=== PATIENT | female | born 1960 | race Caucasian/White ===

== ENCOUNTER 2018-09-21 07:48 | Day surgery (SDC) | payer MEDICARE, OTHER ==
[2018-09-21] MEDS ORDERED: CLINDAMYCIN PHOSPHATE 900 MG/6 ML VIAL ONE (08:48)
[2018-09-21] MEDS ORDERED: LACTATED RINGERS 1,000 ML IV.SOLN IV ONE ×2 (08:48)
[2018-09-21] MEDS ORDERED: LIDOCAINE HCL/PF 2% 100 MG/5 ML VIAL IJ ONE (08:48)
[2018-09-21] MEDS ORDERED: SEVOFLURANE 250 ML LIQUID IH ONE (08:48)
[2018-09-21] MEDS ORDERED: DEXAMETHASONE SOD PHOS 4 MG/ML VIAL ONE (08:48)
[2018-09-21] MEDS ORDERED: FENTANYL 250MCG/5ML VIAL ONE (08:48)
[2018-09-21] MEDS ORDERED: PHENYLEPHRINE HCL 10 MG/1 ML ONE (08:48)
[2018-09-21] MEDS ORDERED: ONDANSETRON HCL/PF 4 MG/ 2ML VIAL ONE (08:48)
[2018-09-21] MEDS ORDERED: fentaNYL CITRATE/PF 100 MCG/ 2ML AMP ONE ×2 (08:48→13:41)
[2018-09-21] MEDS ORDERED: PROPOFOL 200 MG/20 ML VIAL IV ONE (08:48)
[2018-09-21] MEDS ORDERED: ROCURONIUM BROMIDE 10 MG/ML 5ML VIAL ONE (08:48)
[2018-09-21] MEDS ORDERED: SUGAMMADEX 200 mg/2mL 200 MG/2 ML VIAL IV ONE (08:48)
[2018-09-21] MEDS ORDERED: MIDAZOLAM HCL 2 MG/2 ML VIAL ONE (08:48)
[2018-09-21] MEDS ORDERED: LACTATED RINGERS 1,000 ML IV ONE (09:09)
[2018-09-21] MEDS ORDERED: FAMOTIDINE/PF 20 MG/2 ML VIAL ONE (09:10)
[2018-09-21] MEDS ORDERED: LEVALBUTEROL HCL 1.25 MG/3 ML AMPUL.NEB NEB ONE (09:10)
[2018-09-21] MEDS ORDERED: HYDROmorphone HCL/PF 1 MG/ML DISP.SYRIN ONE (13:42)
[2018-09-21] MEDS ORDERED: oxyCODONE/ACETAMINOPHEN 5/325 TABLET PO PRN ×2 (16:20→17:00)
[2018-09-21] MEDS ORDERED: oxyCODONE HCL 5 MG TABLET PO PRN (16:24)
== END 2018-09-21 07:50 ==
LOC: OPSURG 07:48
PROVIDERS: ATTEND Orthopaedic Surgery
DX: M48.062 Spinal stenosis, lumbar region with neurogenic claudication (principal); M51.26 Other intervertebral disc displacement, lumbar region; Z79.01 Long term (current) use of anticoagulants
CPT/HCPCS: 36415; 63030; 85610; 85730; J1100; J1170; J2001; J2250; J2370; J2405; J2704; J3010; J7614; S0028; J7120

== ENCOUNTER 2018-09-24 17:30 | Observation (INO) | payer MEDICARE, OTHER ==
[2018-09-24 19:00] VITALS: BMI 26.2
--- NOTE | 2018-09-24 20:38 | History and Physical Report ---
History of Present Illnes - History of Present Illness Reason for Visit: Intractible pain after surgery History of Present Illness: This is a 58 year old female who had a surgery for a herniated lumbar disk done at our facility on Friday September 21, 2018. She did well after surgery, however she began to have worsening pain on Monday, and presented to the ER at [facility] in [place] Monday, as well as today. She presented to our facility for admission after having an MRI done at [facility]. MRI showed a fluid collection at the surgical site, and this causes some relative spinal stenosis and displacement of the thecal sac anteriorly and to the right. I discussed this with Dr. Rose and he says that this is a normal postoperative finding. He recommended that she be started on a medrol dose pack. He feels like this will help decrease inflammation. She is currently neurovascularly intact in both lower extremities. Her pulses are easily palpable at the DP/PT and she has no objective decrement in strength in either leg. No sensory deficits are noted, however her mental status due to previous stroke make it difficult for her to follow commands for formal neurologic testing. Her pain is difficult to rate but she is repeatedly trying to get comfortable in the bed. Medical records from [facility] are reviewed. It does not include a list of current medications, and her pharmacy ([facility] in [place]) is closed and we cannot locate her records from her visit here on Monday. 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: CVA (age 26) - Past Surgical History Past Surgical History: (x4), Other (surgery for median nerve entrapment) - Past Social History Smoke: <1 pack per day Alcohol: Rare Drugs: None Lives: With Family (With who is alcoholic) Domestic Violence: Negative (But according to records from [facility] she feels "unsafe at home".) - Health Maintenance Health Maintenance: Cholesterol Influenza Vaccine: Current for this Influenza Season Pneumonia Vaccine: No Resuscitation Status: Resusciation Status Resuscitation Status Full Code - Unable to Obtain History Unable to Obtain: Yes Review of Systems - Review of Systems Constitutional: negative: Fever Eyes: negative: pain ENT: negative: Ear Pain Respiratory: negative: Cough Cardiovascular: negative: Chest Pain Gastrointestinal: negative: Nausea, Vomiting Genitourinary: negative: Dysuria Musculoskeletal: Back Pain (lower back at surgery site) Skin: negative: Rash, Lesions Neurological: negative: Weakness, Numbness, Change in Speech (Baseline shows poor quality speech, lability of mood) - Medications/Allergies Allergies/Adverse Reactions: Allergies Allergy/AdvReac Type Severity Reaction Status Date / Time Cephalosporins Allergy Verified 09/24/18 20:28 codeine Allergy Verified 09/24/18 20:28 ibuprofen Allergy Verified 09/24/18 20:28 NSAIDS (Non-Steroidal Allergy Verified 09/24/18 20:28 Anti-Inflamma Penicillins Allergy Verified 09/24/18 20:28 Sulfa (Sulfonamide Allergy Verified 09/24/18 20:28 Antibiotics) Exam - Exam Vital Signs: Vital Signs (72 hours) 09/24/18 09/24/18 17:53 18:00 Temperature 98.8 F 98.8 F Pulse Rate [ 95 H Right Brachial] Pulse Rate [ 95 H 95 H Right] Respiratory 20 20 Rate Blood Pressure 147/76 147/76 [Right Arm] O2 Sat by Pulse 97 Oximetry General: Oriented to Person HEENT: Atraumatic, PERRLA, EOMI, Poor Dentition Neck: No: Stridor, Normal Range of Motion Lungs: Wheezes, Decreased Air Movement. No: Respiratory Distress Cardiovascular: Regular rate Murmur: Systolic Murmur Murmur Location: Left Sternal Boarder Heart Murmur Grade: II Abdomen: Normal bowel sounds, Soft, Other (Scar from previous LTCS x 4) Genitourinary: No: Other Male Genitourinary: No: Other Female Genitourinary: No: Other Integumentary: Normal, [place], Warm Extremities: No clubbing, No cyanosis, No edema Neurological: Other (DTRs are difficulty to elicit, but symmetric. 5/5 strength at the ankle to plantar flexion and dorsiflexion, 5/5 knee flexion and extension, active movement of hip flexors and extensors are noted, but she has difficulty following directions for testing. Intact sensation to both feet. She can tell where light touch is applied. ). No: Normal gait Psych/Mental Status: Mental status NL (at baseline) Assessment/Plan - Assessment/Plan (1) Back pain Status: Acute Current Visit: Yes Qualifiers: Back pain location: low back pain Chronicity: acute Back pain laterality: bilateral Sciatica presence: without sciatica Qualified Code(s): M54.5 - Low back pain Assessment: S/P surgery for herniated disk Plan: MRI shows relative spinal stenosis and displacement of the thecal sac anteriorly and to the right, which is felt by Dr. Rose to be a normal postoperative finding. Medrol dose pack as suggested by Dr. Rose. (2) History of CVA (cerebrovascular accident) Status: Acute Current Visit: Yes Assessment: Will attempt to get records from her pharmacy or locate our records. It appears that she may be chronically on warfarin, but available records do not delineate the reason for this. (3) History of rheumatic fever Status: Acute Current Visit: Yes (4) Smoker Status: Acute Current Visit: Yes Assessment: Place 14 mg nicotrol patch VTE Assessment - RISK FACTOR SCORE VTE RISK FACTOR SCORES: AGE 40-60 YEARS, ANTICIPATED BED CONFINEMENT OR IMMOBILIZATION > 24 HOURS (Will hold Lovenox)
[2018-09-24] MEDS ORDERED: oxyCODONE/ACETAMINOPHEN 5/325 TABLET PO PRN (21:10)
[2018-09-24] MEDS ORDERED: ONDANSETRON HCL/PF 4 MG/ 2ML VIAL IVP PRN (21:11)
[2018-09-24] MEDS ORDERED: traZODone HCL 50 MG TABLET PO PRN (21:11)
[2018-09-24] MEDS ORDERED: methylPREDNISolone SOD SUCC 125 MG/2 ML VIAL ONE (21:33)
[2018-09-24] MEDS ORDERED: 0.9 % SODIUM CHLORIDE 100 ML IV ONE (21:37)
[2018-09-25 07:35] LABS: eGFR (Non-African) > 60
--- NOTE | 2018-09-25 10:21 | Inpatient Progress Note ---
Subjective - Required Recertification Statement I anticipate X number of days because-include discharge plan: 1 - Review of Systems Events since last encounter: Albertina is more alert this morning, but is claiming not to be able to walk. She moves about her bed well. She has no objective weakness in her legs, but when she gets her feet on the floor, she refuses to bear weight on her legs. We have spoken with her social media developer Nae, and she is assisting with making arrangements for transfer to [place] either back to her home or to a jail if she cannot ambulate. PT is to see her to evaluate her. General: Denies: Chills HEENT: Denies: Head Aches Pulmonary: Denies: Dyspnea, Cough Cardiovascular: Denies: Chest Pain Gastrointestinal: Denies: Nausea, Vomiting Genitourinary: Denies: Dysuria Musculoskeletal: Back Pain, Leg Pain. Denies: Neck Pain Neurological: Other (No objective weakness in BLE while testing in bed. She has weak, but symmetric DTRs. No sensory deficits are noted.) Objective - Exam Vitals and I&O: Vital Signs Temp 96.8 F L 09/25/18 06:00 Pulse 95 H 09/25/18 09:00 Resp 20 09/25/18 09:00 BP 117/60 09/25/18 06:00 Pulse Ox 93 09/25/18 06:00 Intake & Output 09/24/18 09/24/18 09/25/18 11:59 23:59 11:59 Intake Total 1071 Output Total 750 Balance 321 Weight 75.75 kg Intake: Oral 360 Tube Feeding 711 Output: Urine 750 Other: Voiding Method Bedpan General: Oriented to Person. No: Oriented to Place, Oriented to Time, Cooperative HEENT: Atraumatic, PERRLA Neck: Supple, No JVD Lungs: Prolonged Expiration, Decreased Air Movement Cardiovascular: Regular rate Abdomen: Normal bowel sounds, Soft Extremities: No clubbing, No cyanosis, No edema Neurological: No: Normal speech (speech is rambling, repetitive phrases, difficult to understand) Psych/Mental Status: No: Mental status NL, Intact Judgment - Results Results: Laboratory Results Sodium 138 mmol/L (136-145) 09/25/18 06:34 Potassium 4.4 mmol/L (3.5-5.1) 09/25/18 06:34 Chloride 107 mmol/L (98-107) 09/25/18 06:34 Carbon Dioxide 27 mmol/L (22-30) 09/25/18 06:34 BUN 13 mg/dL (7-17) 09/25/18 06:34 Creatinine 0.70 mg/dL (0.52-1.04) 09/25/18 06:34 Estimated Creat Clear 120 09/25/18 06:34 Est GFR ( Amer) > 60 (60-) 09/25/18 06:34 Est GFR (Non-Af Amer) > 60 (60-) 09/25/18 06:34 Glucose 100 mg/dL (74-106) 09/25/18 06:34 Calcium 9.0 mg/dL (8.4-10.2) 09/25/18 06:34 Total Bilirubin 0.5 mg/dL (0.2-1.3) 09/25/18 06:34 AST 16 U/L (15-46) 09/25/18 06:34 ALT 27 U/L (13-69) 09/25/18 06:34 Alkaline Phosphatase 76 U/L (38-126) 09/25/18 06:34 Total Protein 6.4 g/dL (6.3-8.2) 09/25/18 06:34 Albumin 3.6 g/dL (3.5-5.0) 09/25/18 06:34 Assessment/Plan - Assessment/Plan (1) Back pain Status: Acute Current Visit: Yes Qualifiers: Back pain location: low back pain Chronicity: acute Back pain laterality: bilateral Sciatica presence: without sciatica Qualified Code(s): M54.5 - Low back pain Assessment: PT to see and evaluate Hope for transfer to her home if she can ambulate or to a jail if she cannot (2) History of CVA (cerebrovascular accident) Status: Acute Current Visit: Yes (3) History of rheumatic fever Status: Acute Current Visit: Yes (4) Smoker Status: Acute Current Visit: Yes
--- NOTE | 2018-09-25 12:32 | Discharge Summary ---
Discharge Summary - Discharge Sumary History of Present Illness: This is a 58 year old female who had a surgery for a herniated lumbar disk done at our facility on Friday September 21, 2018. She did well after surgery, however she began to have worsening pain on Monday, and presented to the ER at [facility] in [place] Monday, as well as today. She presented to our facility for admission after having an MRI done at [facility]. MRI showed a fluid collection at the surgical site, and this causes some relative spinal stenosis and displacement of the thecal sac anteriorly and to the right. I discussed this with Dr. Rose and he says that this is a normal postoperative finding. He recommended that she be started on a medrol dose pack. He feels like this will help decrease inflammation. She is currently neurovascularly intact in both lower extremities. Her pulses are easily palpable at the DP/PT and she has no objective decrement in strength in either leg. No sensory deficits are noted, however her mental status due to previous stroke make it difficult for her to follow commands for formal neurologic testing. Her pain is difficult to rate but she is repeatedly trying to get comfortable in the bed. While in hospital patient was treated for pain control. Introduced PT/OT- patient refused to try to walk- she has strong pushes and pulls with feet- she is able to move from a lying position to sitting independently. Patient was treated with IV steroids to help reduce inflammation s/p surgery- will send patient home on a medrol dose pack. Discussed with patient going to a skilled nursing close to home to receive 24 hour care along with PT/OT- patient adamantly refusing- she is insisting on going home- she states that if we keep her "we are kidnapping her". Patient will be discharged home via Medicaid transport- patient is to follow up with Web Press Roll Tender, PCP, and Dr Rose. Condition at Discharge: Stable Home Medications: Ambulatory Orders Medication Instructions Recorded Methylprednisolone [Medrol] 4 mg PO DIRECTED #21 tab.ds.[id number] 09/25/18 Oxycodone HCl/Acetaminophen 1 - 2 each PO Q4H PRN 09/25/18 [Oxycodon-Acetaminophen 7.5-325] Trazodone HCl [Desyrel] 100 mg PO HS 09/25/18 Warfarin Sodium 1 tab PO [id number] 09/25/18 Warfarin Sodium 6 mg PO [id number] 09/25/18 Consultations this Visit: None Procedures this Visit: None Allergies/Adverse Reactions: Allergies Allergy/AdvReac Type Severity Reaction Status Date / Time Cephalosporins Allergy Verified 09/24/18 20:28 codeine Allergy Verified 09/24/18 20:28 ibuprofen Allergy Verified 09/24/18 20:28 NSAIDS (Non-Steroidal Allergy Verified 09/24/18 20:28 Anti-Inflamma Penicillins Allergy Verified 09/24/18 20:28 Sulfa (Sulfonamide Allergy Verified 09/24/18 20:28 Antibiotics) Discharge Summary: Patient was admitted observation- she continues to refuse to try and get up to ambulate- she states that she cant. 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 She is independent in bed moving from a lying to sitting position but refuses to stand. Physical and Occupational therapy have seen patient- patient continues to refuse to walk. Encouraged patient to stay in skilled nursing close to home for 24 hour care and therapy- patient is adamant about going home- she refuses any further assistance. She states that she will follow up with her Web Press Roll Tender and PCP. Upon discharge- when nursing went into the room the patient had gotten out of bed and sat herself in the wheelchair (pt states that she rolled from the bed to the wheelchair) wheelchair was by the sink. Nursing also stated that patient got up out of wheelchair when transportation arrived and she got into the car on her own (stepping into the vehicle on her own) Hospital Course: While in hospital patient was treated with steroids to decrease inflammation s/p back surgery. Pain medication for discomfort. PT/OT eval to get up and ambulate (pt refuses) - Final Diagnosis (1) Back pain Problems: Patient admitted obs for back pain s/p surgery- refuses to walk- independent in bed Pain control while in hospita Patient is to follow up with PCP and director social Right or Left: Right (2) History of CVA (cerebrovascular accident) Problems: Patient on Warfarin Right or Left: Right (3) Smoker Problems: No smoking while in hospital Right or Left: Right
[2018-09-25 13:11] VITALS: BP 120/70
== END 2018-09-25 17:45 | disposition home or self-care (01) ==
LOC: SOUTH 17:30 → INTOOBSV 17:30
PROVIDERS: ADMIT Family Medicine; ATTEND Family Medicine
DX: M54.5 Low back pain (principal); R60.9 Edema, unspecified; F17.210 Nicotine dependence, cigarettes, uncomplicated; Z98.890 Other specified postprocedural states
CPT/HCPCS: 80053; 96374; 97161; 97165; G0378; G0379; G8978; G8987; G8988; J2930; 99217; 99218